=== PATIENT | female | born 1955 | race Hispanic/Latino ===

== ENCOUNTER 2017-07-02 12:02 | Observation (INO) | payer MEDICARE, OTHER ==
[~2017-07-02] VITALS: Ht 162.6 cm; Wt 75.7 kg
[~2017-07-02 12:02] MED LIST: AMLODIPINE BESY10 MG PO; CRESTOR10 MG PO; LEVAQUIN500 MG PO; LOPRESSOR25 MG PO; LOSARTAN POTAS100 MG PO; OMEPRAZOLE40 MG PO; ULTRAM50 MG PO
[2017-07-02] MEDS ORDERED: ASPIRIN 81 MG CHEW TAB PO ONE (12:30)
[2017-07-02] MEDS ORDERED: NEXIUM40 MG PO (12:54)
[2017-07-02] MEDS ORDERED: CHLORTHALIDONE50 MG PO (12:54)
[2017-07-02] MEDS ORDERED: METOPROLOL SUC200 MG PO (12:54)
[2017-07-02] MEDS ORDERED: ASPIR 8181 MG PO (12:54)
[2017-07-02] MEDS ORDERED: HYDROCHLOROTHIA25 MG PO (12:54)
[2017-07-02] MEDS ORDERED: ADVIL200 M1 PO (12:54)
[2017-07-02] MEDS ORDERED: ONDANSETRON HCL INJ 2 MG/ML VIAL IV STA ×2 (13:02→13:49)
[2017-07-02 13:08] LABS: BASOPHILS # (AUTO) 0.1 (0.0-0.1); BASOPHILS % 0.6 % (0.0-1.0); EOSINOPHILS # (AUTO) 0.2 (0.0-0.4); EOSINOPHILS % 1.9 % (0.0-6.0); HEMATOCRIT 43.3 % (34.2-44.1); HEMOGLOBIN 15.5 g/dL (12.0-16.0); LYMPHOCYTES # (AUTO) 3.2 (1.0-3.2); LYMPHOCYTES % 32.6 % (18.0-39.1); MEAN CORPUSCULAR HEMOGLOBIN 31.1 pg (28-32); MEAN CORPUSCULAR HGB CONC 35.8 g/dL (31-35); MEAN CORPUSCULAR VOLUME 86.9 fL (81-99); MONOCYTES # (AUTO) 0.9 (0.2-0.8); MONOCYTES % 9.2 % (4.4-11.3); NEUTROPHILS # (AUTO) 5.4 (2.1-6.9); NEUTROPHILS % 55.5 % (38.7-80.0); PLATELET COUNT 368 x10e3/uL (140-360); RED BLOOD COUNT 4.98 x10e6/uL (3.6-5.1)
--- NOTE | 2017-07-02 13:09 | Diagnostic Imaging Report ---
PROCEDURE:CHEST SINGLE (PORTABLE) TECHNIQUE:Portable AP chest INDICATION:Chest pain COMPARISON:None. FINDINGS: The lungs are clear and symmetrically inflated. No pleural effusions. Normal heart size, mediastinal contour, and pulmonary vasculature. Intact skeleton. CONCLUSION: No acute abnormality. Dictated by: Alexi Ricketts M.D. on 07/02/2017 at 13:09 Electronically approved by: Alexi Ricketts M.D. on 07/02/2017 at 13:09
[2017-07-02] MEDS ORDERED: MORPHINE SULFATE 2 MG/ML SYR IV STA (13:12)
[2017-07-02 13:18] LABS: INR 1.02; PROTHROMBIN TIME 12.6 seconds (11.9-14.5)
[2017-07-02 13:19] LABS: PARTIAL THROMBOPLASTIN TIME 26.4 seconds (23.8-35.5)
[2017-07-02 13:28] LABS: ALANINE AMINOTRANSFERASE 23 IU/L (0-55); ALBUMIN 4.6 g/dL (3.5-5.0); ALBUMIN/GLOBULIN RATIO 1.2 (0.8-2.0); ALKALINE PHOSPHATASE 85 IU/L (40-150); ANION GAP 15.8 mmol/L (8-16); BLOOD UREA NITROGEN 15 mg/dL (7-26); BUN/CREATININE RATIO 16 (6-25); CALCIUM 10.2 mg/dL (8.4-10.2); CARBON DIOXIDE 26 mmol/L (22-29); CHLORIDE 100 mmol/L (98-107); CREATINE KINASE 106 IU/L (29-168); CREATININE, SERUM 0.92 mg/dL (0.57-1.11); EST GLOMERULAR FILTRATION RATE > 60 ML/MIN (60-); GLUCOSE 110 mg/dL (74-118); MAGNESIUM 2.5 MG/DL (1.3-2.1); SODIUM 139 mmol/L (136-145)
[2017-07-02 13:29] LABS: POTASSIUM 2.8 mmol/L (3.5-5.1)
[2017-07-02] MEDS ORDERED: POTASSIUM CHLORIDE 20 MEQ TAB CR PO STA (13:30)
[2017-07-02] MEDS ORDERED: POTASSIUM CHLORIDE 20MEQ/100ML 100 ML IV ONE ×2 (13:30→13:45)
[2017-07-02] MEDS ORDERED: FAMOTIDINE 20 MG/2 ML VIAL IV STA (13:49)
[2017-07-02] MEDS ORDERED: METOPROLOL TARTRATE 50 MG TAB PO STA (13:49)
[2017-07-02] MEDS ORDERED: MORPHINE SULFATE 4 MG/ML SYR IV STA (13:49)
[2017-07-02] MEDS ORDERED: ENOXAPARIN SODIUM INJ 100 MG/ML SYR SC STA (13:49)
[2017-07-02] MEDS ORDERED: CLOPIDOGREL BISULFATE 300 MG TAB-DO NOT STOCK PO STA (13:49)
[2017-07-02] MEDS ORDERED: ASPIRIN 81 MG CHEW TAB PO STA (13:49)
[2017-07-02] MEDS ORDERED: ENOXAPARIN SODIUM INJ 100 MG/ML SYR SC SCH (14:00)
[2017-07-02] MEDS ORDERED: MORPHINE SULFATE 2 MG/ML SYR IV PRN (14:00)
[2017-07-02] MEDS ORDERED: NITROGLYCERIN 0.4 MG SUBL SL PRN (14:00)
[2017-07-02] MEDS ORDERED: ONDANSETRON HCL INJ 2 MG/ML VIAL IV PRN (14:00)
[2017-07-02] MEDS: POTASSIUM CHLORIDE 20 MEQ TAB CR PO SCH ×2 (14:17→21:00)
[2017-07-02] MEDS ORDERED: ASPIRIN 81 MG CHEW TAB ONE (14:20)
[2017-07-02] MEDS ORDERED: MORPHINE SULFATE 2 MG/ML SYR IV NR (14:30)
[2017-07-02] MEDS ORDERED: CLOPIDOGREL BISULFATE 75 MG TAB PO NR (14:30)
[2017-07-02] MEDS: ENOXAPARIN INJ 80 MG/0.8 ML SYR SC SCH ×2 (14:36→21:00)
[2017-07-02] MEDS: FAMOTIDINE 20 MG/2 ML VIAL IV SCH ×2 (14:36→21:00)
--- OUTSIDE RECORDS SUMMARY | 2017-07-02 14:51 | XMS REPORT ---
[facility] Address Unknown Phone Unavailable Care Team Providers Care Candy Bar Attendant Name Role Phone KATE MOY Unavailable Unavailable Problems This patient has no known problems. Allergies, Adverse Reactions, Alerts This patient has no known allergies or adverse reactions. Medications This patient has no known medications. Results Test Description Test Time Test Comments Text Results Atomic Results Result Comments CHEST SINGLE (PORTABLE) [place] [id number] Patient Name: ROSEANNA PARIS MR #: [id number] : 1955 Age/Sex: 61/F Req #: [id number] Adm Physician: Ordered by: NORM BLISS [employer]INTENA[employer]CE [employer]CH[employer]IC [employer]WR[employer] Report #: [id number] Location: ER Room/Bed: Procedure: [id number] DX/CHEST SINGLE (PORTABLE) Exam Date: 07/02/17 Exam Time: 1220 REPORT STATUS: Signed PROCEDURE: CHEST SINGLE (PORTABLE) TECHNIQUE: Portable AP chest INDICATION: Chest pain COMPARISON: None. FINDINGS: The lungs are clear and symmetrically inflated. No pleural effusions. Normal heart size, mediastinal contour, and pulmonary vasculature. Intact skeleton. CONCLUSION: No acute abnormality. Dictated by: Bowen Ricketts M.D. on 11/2017 at 13:09 Electronically approved by: Bowen Ricketts M.D. on 07/02/2017 at 13:09 Dictated By: BOWEN RICKETTS MD 1306 Transcribed By: IFEANYI on 07/02/17 1305 COPY TO: NORM BLISS NP
[2017-07-02] MEDS ORDERED: SODIUM CHLORIDE 0.9% 500ML 500 ML ONE (15:14)
[2017-07-02 16:37] VITALS: BP 133/62
[2017-07-02 20:00] VITALS: BP 129/62
[2017-07-02 21:00] VITALS: BP 129/62
[2017-07-02] MEDS ORDERED: SIMVASTATIN 40 MG TAB PO SCH (21:00)
[2017-07-02] MEDS: METOPROLOL TARTRATE 25 MG TAB PO SCH (21:00)
[2017-07-02 22:32] LABS: CREATINE KINASE 84 IU/L (29-168)
[2017-07-03] VITALS: BP 140/65
[2017-07-03 04:00] VITALS: BP 150/67
[2017-07-03] MEDS: POTASSIUM CHLORIDE 20 MEQ TAB CR PO SCH ×3 (05:50→21:02)
[2017-07-03 07:20] LABS: BASOPHILS # (AUTO) 0.1 (0.0-0.1); BASOPHILS % 0.8 % (0.0-1.0); EOSINOPHILS # (AUTO) 0.1 (0.0-0.4); EOSINOPHILS % 1.7 % (0.0-6.0); HEMATOCRIT 40.7 % (34.2-44.1); HEMOGLOBIN 14.1 g/dL (12.0-16.0); LYMPHOCYTES % 27.3 % (18.0-39.1); MEAN CORPUSCULAR HEMOGLOBIN 30.7 pg (28-32); MEAN CORPUSCULAR HGB CONC 34.6 g/dL (31-35); MEAN CORPUSCULAR VOLUME 88.5 fL (81-99); MONOCYTES # (AUTO) 0.8 (0.2-0.8); MONOCYTES % 11.2 % (4.4-11.3); NEUTROPHILS # (AUTO) 4.2 (2.1-6.9); NEUTROPHILS % 58.6 % (38.7-80.0); PLATELET COUNT 319 x10e3/uL (140-360); RED CELL DISTRIBUTION WIDTH 13.2 % (11.7-14.4)
[2017-07-03 08:04] LABS: ALANINE AMINOTRANSFERASE 30 IU/L (0-55); ALBUMIN 3.7 g/dL (3.5-5.0); ALBUMIN/GLOBULIN RATIO 1.1 (0.8-2.0); ALKALINE PHOSPHATASE 84 IU/L (40-150); ANION GAP 15.4 mmol/L (8-16); BLOOD UREA NITROGEN 13 mg/dL (7-26); BUN/CREATININE RATIO 14 (6-25); CALCIUM 9.6 mg/dL (8.4-10.2); CARBON DIOXIDE 25 mmol/L (22-29); CHLORIDE 103 mmol/L (98-107); CREATINE KINASE 77 IU/L (29-168); CREATININE, SERUM 0.94 mg/dL (0.57-1.11); EST GLOMERULAR FILTRATION RATE > 60 ML/MIN (60-); GLUCOSE 131 mg/dL (74-118); MAGNESIUM 2.2 MG/DL (1.3-2.1); POTASSIUM 3.4 mmol/L (3.5-5.1); SODIUM 140 mmol/L (136-145)
[2017-07-03] MEDS ORDERED: REGADENOSON 0.4 MG/5 ML SYR IV ONE (08:38)
[2017-07-03] MEDS ORDERED: ASPIRIN 325 MG TAB EC PO SCH (09:00)
--- NOTE | 2017-07-03 09:12 | Consultation ---
DATE OF CONSULTATION: July 02, 2017 CARDIOLOGY CONSULTATION REASON FOR CONSULTATION: Chest pain, hypertension and hypokalemia. REQUESTING PHYSICIAN: Dr. Yariel Crawley HPI: This is a pleasant, 61-year-old female that presented with chest pain. According to the patient, for the last 2 to 3 days she started having left substernal chest pain on a scale of 7 out of 10 that radiated to her left chest and left upper extremity. She stated that the pain was too much that she went to see her PCP. At the PCP's office, she was given sublingual nitroglycerin and some GI cocktail and was sent to the emergency room for evaluation. She stated also that last year she had left upper extremity numbness, and they suspected stroke and started her on Plavix, which she is not taking any more. She denies any palpitation, any dizziness, shortness of breath, headache or diaphoresis. Troponin was negative. EKG showed no ST abnormalities. PAST MEDICAL HISTORY: Hypertension, possible CVA, hyperlipidemia, GERD. PAST SURGICAL HISTORY: Appendectomy, cholecystectomy, and tubal ligation. FAMILY HISTORY: Positive for hypertension. SOCIAL HISTORY: No smoking. No drinking. Lives at home with her aunt. MEDICATIONS: She was on Norvasc, aspirin, Nexium, hydrochlorothiazide, losartan, Crestor, ibuprofen, metoprolol. ALLERGIES: SHE IS NOT ALLERGIC TO ANY MEDICATION. REVIEW OF SYSTEMS: Negative except those mentioned above. PHYSICAL EXAMINATION GENERAL: She is awake, alert and oriented times 3. VITAL SIGNS: Temperature 97.7, heart rate 65, blood pressure 150/67, respirations 16, oxygen saturation 98% on room air. HEENT: Mucous membranes moist. NECK: Supple. LUNGS: Bilaterally clear to auscultation. CARDIOVASCULAR: S1 and S2 present. ABDOMEN: Soft. NEUROLOGIC: Intact. EXTREMITIES: No edema. LABORATORY DATA: Sodium 130, potassium 2.8, chloride 100, CO2 26, BUN 15, creatinine 0.92, glucose 110. White blood cells 7.15, hemoglobin 14.1, hematocrit 40.7, platelet 319. PT 12.6, PTT 26.4, INR 1.02. IMPRESSION 1. Chest pain. 2. Hypokalemia. 3. Hypertension. 4. Hyperlipidemia. 5. History of gastroesophageal reflux disease. ASSESSMENT AND PLAN: Potassium was 2.8, and it has been replaced. She is pending a.m. labs. Will get an echo to assess the LV and valve function. Will continue nitrate and statin. Her troponin was negative. She can follow up in the clinic with outpatient stress test. We can do possible inpatient stress test if her symptoms continue. Further cardiac workup pending clinical course. Thank you for this consultation. Dictated by Tex John NP. Job#: [id number]
[2017-07-03] MEDS ORDERED: POTASSIUM CHLORIDE 20 MEQ TAB CR PO ONE (11:45)
[2017-07-03 11:49] VITALS: BP 162/77
[2017-07-03] MEDS: FAMOTIDINE 20 MG/2 ML VIAL IV SCH ×2 (12:02→21:02)
[2017-07-03] MEDS: METOPROLOL TARTRATE 25 MG TAB PO SCH ×2 (12:03→21:02)
[2017-07-03] MEDS: ENOXAPARIN INJ 80 MG/0.8 ML SYR SC SCH ×2 (12:03→21:02)
[2017-07-03] MEDS: CLOPIDOGREL BISULFATE 75 MG TAB PO SCH (12:03)
[2017-07-03] MEDS: LISINOPRIL 10 MG TAB PO SCH (12:03)
[2017-07-03 12:41] LABS: CHOL/HDL RATIO 2.1 (3.0-3.6); CHOLESTEROL 144 MD/DL (0-199); HDL CHOLESTEROL 67 MG/DL (40-60); LDL CHOLESTEROL 60 MG/DL (60-130); TRIGLYCERIDES 85 MG/DL (0-149)
--- NOTE | 2017-07-03 12:49 | History and Physical ---
REASON FOR ADMISSION: Chest pain. HPI: This is a 61-year-old female with a history of hypertension, hyperlipidemia, and also history of CAD, comes in to the ED with complaints of chest pain that began ongoing for the last 2 days substernally. She rates the pain at 7/10, radiating to the left chest and left upper extremity. She reported her chest pain to her PCP and was told to come to the ED for further evaluation. Patient was seen and evaluated at bedside on the medical floor, currently doing well with no other issues. Currently getting a stress test during my evaluation. Patient is currently stable with no other issues. She currently denies any chest pain during my examination, nausea or vomiting. REVIEW OF SYSTEMS Pertinent positives: Substernal chest pain. Pertinent negatives: Denies any palpitations, nausea, vomiting, diarrhea, dysuria, hematuria, frequency, urgency, lightheadedness, dizziness, abdominal pain, headache, shortness of breath or any other complaints. The rest of the 14-point review of systems have been reviewed with the patient and are negative. ALLERGIES: NONE. HOME MEDICATIONS: She takes; 1. Norvasc 10 mg daily. 2. Aspirin 81 mg daily. 3. Nexium 40 mg daily. 4. Hydrochlorothiazide 25 mg p.o. daily. 5. Losartan 100 mg daily. 6. Crestor 10 mg daily. PAST MEDICAL HISTORY: Hypertension, questionable history of CVA, hyperlipidemia, and GERD. PAST SURGICAL HISTORY: Appendectomy, cholecystectomy, , and tubal ligation. FAMILY HISTORY: Positive for hypertension and diabetes. SOCIAL HISTORY: Does not smoke. No drugs. No alcohol. Good social support. Lives with her aunt. PHYSICAL EXAMINATION VITAL SIGNS: Temperature is 97.7, pulse 65, respiratory rate 16, blood pressure 150/67, pulse ox 98% on room air. GENERAL: No in acute distress, alert and oriented times 3, cooperative on exam. HEENT: Head is normocephalic, atraumatic. Eyes, pupils equal, round and reactive to light bilaterally. Extraocular movements intact bilaterally. Throat with no evidence of erythema or exudates in the posterior pharynx. Has poor dentition. NECK: Supple with good range of motion. PULMONARY: Clear to auscultation bilaterally. No wheezing, no rales, no rhonchi, no crackles appreciated. CARDIOVASCULAR: Positive S1 and S2. No murmurs, rubs, or gallops appreciated. ABDOMEN: Soft, nondistended, nontender on palpation. Bowel sounds are present. MUSCULOSKELETAL: Strength is 5/5 throughout. No evidence of musculoskeletal deficit on examination appreciated. NEUROLOGICAL: Cranial nerves II-XII are grossly intact. No evidence of any neurological deficit on exam. SKIN: Intact. Warm to touch. Good capillary refill. PSYCHIATRIC: Normal affect and mood. EXTREMITIES: No edema. Good range of motion throughout. LABORATORY DATA: Lab findings show sodium 140, potassium 3.4, chloride 103, bicarb 25, anion gap of 15, BUN is 13, creatinine is 0.9, glucose is 131, calcium 9.6, magnesium 2.2. LFT are normal. Troponins are negative times 3. Albumin is 3.7. LDL and lipid panel is all pending. Coagulations were normal. White count 7.1, hemoglobin 14, hematocrit is 41, and platelets are 319. IMAGING: Chest x-ray was negative. MICROBIOLOGY: None. IMPRESSION 1. Chest pain. 2. Hypertension. 3. Hyperlipidemia. 4. Hypokalemia. 5. History of acid reflux. PLAN: At this time, patient is getting cardiac stress test. Cardiology consulted. EKG shows no acute findings. Troponins are negative. If stress test is negative, will likely discharge home. Her chest pain is likely atypical in nature. Potassium is being replaced. Continue same home medications. We will resume all her antihypertensive medications. Pain control. She is currently denies any chest pain. Once everything is clear by cardiology, we will discharge her home. Job#: [id number] VAS
--- NOTE | 2017-07-03 13:01 | Cardiology Report ---
DATE OF STUDY: July 03, 2017 LEXISCAN NUCLEAR STRESS TEST INDICATIONS: Chest pain. DESCRIPTION OF PROCEDURE: After informed consent, the patient was brought to the stress lab. She was given 11 mCi of technetium 99 Myoview, and myocardial perfusion SPECT images were obtained in horizontal long axis and short axis and vertical long axis. Subsequently, the patient was given 0.4 mg Lexiscan over 10 seconds. Patient was given 31.5 mCi of technetium 99 Myoview, and myocardial perfusion SPECT images obtained in horizontal long and short axis and vertical long axis. Gated images were also obtained. Patient tolerated the procedure without any complications. REPORT: Baseline EKG shows sinus rhythm at 65 beats per minute, normal axis, normal intervals, nonspecific ST-T changes. PARAMETERS 1. Resting heart rate 68 beats per minute. 2. Maximum heart rate is 108 beats per minute. 3. Resting blood pressure 110/60 mmHg. 4. Maximum blood pressure 133/60 mmHg. REASON FOR TERMINATION: End point attained. INTERPRETATION 1. Negative chest pain. 2. Negative for arrhythmias. 3. Blood pressure response consistent with Lexiscan. 4. No significant ST-T changes seen during Lexiscan infusion compared to baseline. 5. Analysis of SPECT images reveals uniform radioisotope uptake in all segments of the myocardium without any significant perfusion defects. CONCLUSION 1. No evidence of significant ischemia or infarction on this study. 2. No wall motion abnormalities. 3. Overall ejection fraction is 68%. Job#: [id number]
[2017-07-03 16:00] VITALS: BP 157/68
[2017-07-03 20:00] VITALS: BP 112/54
[2017-07-03] MEDS ORDERED: SIMVASTATIN 40 MG TAB PO SCH (21:00)
[2017-07-03 21:02] VITALS: BP 112/54
[2017-07-04] VITALS: BP 146/65
[2017-07-04 04:00] VITALS: BP 123/57
[2017-07-04] MEDS: POTASSIUM CHLORIDE 20 MEQ TAB CR PO SCH (06:09)
[2017-07-04 07:00] LABS: BASOPHILS # (AUTO) 0.1 (0.0-0.1); BASOPHILS % 0.7 % (0.0-1.0); EOSINOPHILS # (AUTO) 0.3 (0.0-0.4); EOSINOPHILS % 2.9 % (0.0-6.0); HEMATOCRIT 40.3 % (34.2-44.1); HEMOGLOBIN 13.9 g/dL (12.0-16.0); LYMPHOCYTES # (AUTO) 2.7 (1.0-3.2); LYMPHOCYTES % 25.7 % (18.0-39.1); MEAN CORPUSCULAR HEMOGLOBIN 30.8 pg (28-32); MEAN CORPUSCULAR HGB CONC 34.5 g/dL (31-35); MEAN CORPUSCULAR VOLUME 89.2 fL (81-99); MONOCYTES % 9.8 % (4.4-11.3); NEUTROPHILS # (AUTO) 6.3 (2.1-6.9); NEUTROPHILS % 60.7 % (38.7-80.0); PLATELET COUNT 316 x10e3/uL (140-360); RED BLOOD COUNT 4.52 x10e6/uL (3.6-5.1); RED CELL DISTRIBUTION WIDTH 13.2 % (11.7-14.4)
[2017-07-04 07:19] LABS: ANION GAP 13.9 mmol/L (8-16); BLOOD UREA NITROGEN 15 mg/dL (7-26); BUN/CREATININE RATIO 16 (6-25); CALCIUM 9.4 mg/dL (8.4-10.2); CARBON DIOXIDE 25 mmol/L (22-29); CHLORIDE 105 mmol/L (98-107); CREATININE, SERUM 0.91 mg/dL (0.57-1.11); EST GLOMERULAR FILTRATION RATE > 60 ML/MIN (60-); GLUCOSE 121 mg/dL (74-118); POTASSIUM 3.9 mmol/L (3.5-5.1); SODIUM 140 mmol/L (136-145)
[2017-07-04] MEDS ORDERED: POTASSIUM CHLORIDE 20 MEQ TAB CR PO STA (07:35)
[2017-07-04] MEDS ORDERED: BENZONATATE 100 MG CAP PO PRN (08:00)
[2017-07-04 08:13] VITALS: BP 149/65
[2017-07-04 08:22] VITALS: BP 149/65
[2017-07-04] MEDS: FAMOTIDINE 20 MG/2 ML VIAL IV SCH (08:33)
[2017-07-04] MEDS: CLOPIDOGREL BISULFATE 75 MG TAB PO SCH (08:34)
[2017-07-04] MEDS: METOPROLOL TARTRATE 25 MG TAB PO SCH (08:34)
[2017-07-04] MEDS: LISINOPRIL 10 MG TAB PO SCH (08:34)
[2017-07-04] MEDS: ENOXAPARIN INJ 80 MG/0.8 ML SYR SC SCH (08:35)
[2017-07-04] MEDS ORDERED: LORATADINE 10 MG TAB PO SCH (09:00)
[2017-07-04] MEDS ORDERED: LOSARTAN POTASSIUM 100 MG TAB PO SCH (09:00)
[2017-07-04] MEDS ORDERED: HYDROCHLOROTHIAZIDE 25 MG TAB PO SCH (09:00)
[2017-07-04] MEDS ORDERED: AMLODIPINE BESYLATE 10 MG TAB PO SCH (09:00)
[2017-07-04] MEDS ORDERED: ASPIRIN 81 MG CHEW TAB PO SCH (09:00)
[2017-07-04] MEDS ORDERED: PANTOPRAZOLE SOD 40 MG TABEC PO SCH (09:00)
[2017-07-04] MEDS ORDERED: METOPROLOL TART25 MG PO (11:28)
[2017-07-04] MEDS ORDERED: TESSALON PERLE100 MG PO (11:29)
[2017-07-04 12:07] VITALS: BP 143/68
--- NOTE | 2017-07-07 03:30 | Discharge Summary ---
3.7. LDL was . Microbiology negative. Chest x-ray was negative. Cardiac stress test was negative as well. HOSPITAL COURSE: This is a 61-year-old female who came into the ED with complaint of substernal chest pain, onset 2 days prior to arrival to the ED. The patient was admitted, and cardiology and was consulted. The patient had negative cardiac enzymes. EKG showed no acute findings. The patient had on cardiac telemetry. Cardiac stress test was found to be negative. A 2-D echo was shown to have EF 65% to 70% with no other acute abnormalities. Cardiology cleared the patient for discharge home. The patient is to take cardioprotective meds at home as well. She was started also on oral metoprolol 25 mg p.o. b.i.d. as well as her home medications, see chart. Vital signs were stable. . . Follow up with primary care physician. DISCHARGE MEDICATIONS: See medication reconciliation form. DISPOSITION: Home. CONDITION: Stable. DIET: Heart healthy. FOLLOWUP: With your primary care physician in 1 week. posthospital followup. OMID RICHARDSON MD Job#: [id number]
== END 2017-07-04 12:35 | disposition home or self-care (01) ==
LOC: ER 12:02 → ERHOLD 14:49 → INTOOBSV 14:49 → MED/SURG 14:51
PROVIDERS: ADMIT Internal Medicine; ATTEND Internal Medicine
DX: R07.89 Other chest pain (principal); I10 Essential (primary) hypertension; E78.5 Hyperlipidemia, unspecified; E87.6 Hypokalemia; I25.10 Atherosclerotic heart disease of native coronary artery without angina pectoris; K21.9 Gastro-esophageal reflux disease without esophagitis
CPT/HCPCS: 36415 ×3; 71045; 78452; 80048; 80053 ×2; 80061; 82550 ×2; 82553 ×2; 83735 ×2; 84484 ×2; 85025 ×3; 85610; 85730; 93005; 93017; 93306; 99284; A9502; G0378 ×3; J1650 ×3; J2270; J2405; J3480; J7040

== ENCOUNTER → 2021-09-17 | Outpatient (CLI) | payer MEDICARE ==
[~2021-09-17] MED LIST changes: +ADVIL200 M1 PO; +ASPIR 8181 MG PO; +CHLORTHALIDONE50 MG PO; +HYDROCHLOROTHIA25 MG PO; +METOPROLOL SUC200 MG PO; +METOPROLOL TART25 MG PO; +NEXIUM40 MG PO; +TESSALON PERLE100 MG PO
== END ==
LOC: RAD 07:38
PROVIDERS: ATTEND Family Medicine
DX: S69.91XA Unspecified injury of right wrist, hand and finger(s), initial encounter (principal); S89.91XA Unspecified injury of right lower leg, initial encounter; M79.644 Pain in right finger(s); M25.561 Pain in right knee

== ENCOUNTER 2022-09-16 10:41 | Emergency (ER) | payer MEDICARE ==
[~2022-09-16] VITALS: Ht 162.6 cm; Wt 78.9 kg
[2022-09-16] MEDS ORDERED: KETOROLAC TROMETHAMINE 30 MG/ML VIAL IV STA (12:07)
[2022-09-16] MEDS ORDERED: DIPHENHYDRAMINE HCL INJ 50 MG/ML VIAL IV ONE (12:15)
[2022-09-16] MEDS ORDERED: LACTATED RINGER'S 1,000 ML IV ONE (12:15)
[2022-09-16 12:57] LABS: BASOPHILS # (AUTO) 0.1 (0.0-0.1); BASOPHILS % 0.7 % (0.0-1.0); EOSINOPHILS # (AUTO) 0.3 (0.0-0.4); EOSINOPHILS % 4.3 % (0.0-6.0); HEMATOCRIT 43.2 % (34.2-44.1); LYMPHOCYTES # (AUTO) 2.1 (1.0-3.2); LYMPHOCYTES % 30.7 % (18.0-39.1); MEAN CORPUSCULAR HEMOGLOBIN 30.6 pg (28-32); MEAN CORPUSCULAR HGB CONC 32.4 g/dL (31-35); MEAN CORPUSCULAR VOLUME 94.5 fL (81-99); MONOCYTES # (AUTO) 0.6 (0.2-0.8); MONOCYTES % 8.5 % (4.4-11.3); NEUTROPHILS # (AUTO) 3.7 (2.1-6.9); NEUTROPHILS % 55.7 % (38.7-80.0); PLATELET COUNT 303 x10e3/uL (140-360); RED BLOOD COUNT 4.57 x10e6/uL (3.6-5.1); RED CELL DISTRIBUTION WIDTH 13.5 % (11.7-14.4)
[2022-09-16 13:16] LABS: ALBUMIN 4.3 g/dL (3.5-5.0); ALBUMIN/GLOBULIN RATIO 1.2 (0.8-2.0); ANION GAP 14.1 mmol/L (8-16); CALCIUM 9.7 mg/dL (8.4-10.2); CREATININE, SERUM 0.77 mg/dL (0.57-1.11); POTASSIUM 4.1 mmol/L (3.5-5.1)
[2022-09-16 15:09] VITALS: O2SAT 99
== END 2022-09-16 15:35 | disposition home or self-care (01) ==
LOC: EDBD 10:50 → ER 10:50
DX: R51.9 Headache, unspecified (principal); I10 Essential (primary) hypertension; K21.9 Gastro-esophageal reflux disease without esophagitis; E78.00 Pure hypercholesterolemia, unspecified; Z86.73 Personal history of transient ischemic attack (TIA), and cerebral infarction without residual deficits
CPT/HCPCS: 36415; 70450; 80053; 85025; 85651; 99284; J1200; J1885; J7121

== ENCOUNTER 2024-05-20 08:50 | Emergency (ER) | payer MEDICARE ==
[~2024-05-20] VITALS: Ht 162.6 cm; Wt 78.9 kg
[2024-05-20 08:55] VITALS: TEMP 98.5
[2024-05-20] MEDS: ONDANSETRON HCL INJ 2MG/ML 2ML 2 MG/ML VIAL IV PRN (09:25)
[2024-05-20 09:27] LABS: BASOPHILS % 0.4 % (0.0-1.0); EOSINOPHILS % 0.4 % (0.0-6.0); HEMATOCRIT 45.6 % (34.2-44.1); HEMOGLOBIN 14.5 g/dL (12.0-16.0); LYMPHOCYTES # (AUTO) 1.3 (1.0-3.2); MEAN CORPUSCULAR HEMOGLOBIN 30.5 pg (28-32); MEAN CORPUSCULAR HGB CONC 31.8 g/dL (31-35); MEAN CORPUSCULAR VOLUME 95.8 fL (81-99); MONOCYTES # (AUTO) 0.4 (0.2-0.8); MONOCYTES % 5.4 % (4.4-11.3); NEUTROPHILS # (AUTO) 5.7 (2.1-6.9); NEUTROPHILS % 76.5 % (38.7-80.0); PLATELET COUNT 252 x10e3/uL (140-360); RED BLOOD COUNT 4.76 x10e6/uL (3.6-5.1); RED CELL DISTRIBUTION WIDTH 12.6 % (11.7-14.4); WHITE BLOOD COUNT 7.46 x10e3/uL (4.8-10.8)
[2024-05-20] MEDS: DICYCLOMINE HCL 20 MG/2 ML VIAL IM ONE (09:27)
[2024-05-20] MEDS: SODIUM CHLORIDE 0.9% 1000ML 1,000 ML IV STA (09:27)
[2024-05-20 09:36] LABS: COLOR,URINE YELLOW (YELLOW)
[2024-05-20 09:37] LABS: BILIRUBIN,URINE SMALL (NEGATIVE); CLARITY,URINE CLOUDY (CLEAR); GLUCOSE, URINE NEGATIVE (NEGATIVE); KETONES,URINE 1+ (NEGATIVE); LEUKOCYTE ESTERASE ,URINE NEGATIVE (NEGATIVE); NITRITE,URINE NEGATIVE (NEGATIVE); PH,URINE 6 (5 - 7); PROTEIN,URINE DIPSTICK >=300 (NEGATIVE); URINE UROBILINOGEN 0.2 mg/dL (0.2 - 1)
[2024-05-20 09:48] LABS: BACTERIA,URINE MANY /HPF; EPITHELIAL CELLS,URINE MANY /LPF; RBC,URINE 0-5 /HPF (0-5); WBC,URINE (MAN) 21-50 /HPF (0-5)
[2024-05-20] MEDS ORDERED: CEFDINIR300 MG PO (09:57)
[2024-05-20] MEDS ORDERED: ONDANSETRON ODT4 MG PO (09:57)
[2024-05-20] MEDS ORDERED: DICYCLOMINE HCL20 MG PO (09:58)
[2024-05-20 10:03] VITALS: PULSE 66; RESP 17; O2SAT 99
[2024-05-20 10:10] LABS: ALBUMIN 4.4 g/dL (3.5-5.0); ALBUMIN/GLOBULIN RATIO 1.1 (0.8-2.0); ANION GAP 17.4 mmol/L (8-16); BILIRUBIN,TOTAL 0.8 mg/dL (0.2-1.2); CALCIUM 9.2 mg/dL (8.4-10.2); CREATININE, SERUM 1.04 mg/dL (0.57-1.11); TOTAL PROTEIN 8.3 g/dL (6.5-8.1)
[2024-05-20 10:13] LABS: POTASSIUM 3.4 mmol/L (3.5-5.1)
== END 2024-05-20 10:37 | disposition home or self-care (01) ==
LOC: ER 08:54
DX: R10.84 Generalized abdominal pain (principal); N39.0 Urinary tract infection, site not specified; R19.7 Diarrhea, unspecified; R11.0 Nausea; I10 Essential (primary) hypertension; K21.9 Gastro-esophageal reflux disease without esophagitis; E78.00 Pure hypercholesterolemia, unspecified; Z86.73 Personal history of transient ischemic attack (TIA), and cerebral infarction without residual deficits
CPT/HCPCS: 36415; 80053; 81001; 83690; 85025; 87086; 99283; J0500; J2405; J2470; J7030